=== PATIENT | male | born 1985 | race American Indian/Alaskan Native ===

== ENCOUNTER 2017-04-10 06:05 | Day surgery (SDC) | payer OTHER ==
[2017-04-10] MEDS ORDERED: fentaNYL 100 MCG/2 ML SDV IV ONE ×3 (06:06→06:43)
[2017-04-10] MEDS ORDERED: Midazolam 1 MG/ML 2 ML SDV IV ONE ×3 (06:06→06:45)
[2017-04-10] MEDS ORDERED: fentaNYL 100 MCG/2 ML SDV ONE (06:23)
[2017-04-10] MEDS ORDERED: Midazolam 1 MG/ML 2 ML SDV ONE (06:23)
[2017-04-10] MEDS ORDERED: Dextrose 5%-0.45% NaCl 1,000 ML IV SCH ×2 (07:00→07:15)
[2017-04-10] MEDS ORDERED: Sodium Chloride 0.9% 10 ML Syringe FLUSH PRN ×2 (07:00→07:06)
--- NOTE | 2017-04-10 07:29 | OR ---
DATE: 04/10/2017 PROCEDURES: Esophagogastroduodenoscopy, NBI, and multiple pinch biopsies and brush biopsy for cytology. INSTRUMENT USED: GIF-H180 Olympus video panendoscope. PREMEDICATIONS: No oral topical anesthesia used. Fentanyl 100 mcg intravenous, Versed 2 mg intravenous. Nasal O2 cannula. The procedure was done under pulse oximetry, BP recording, and medical unit secretary. INDICATION: The patient with persistent upper abdominal pain, unexplained and not responsive to medical measures. Esophagogastroduodenoscopy is performed for detection of any active erosive lesions, Lin esophagus and/or malignancy also under consideration, H. pylori status to be determined, endoscopic hemostasis therapy if needed. DESCRIPTION OF PROCEDURE: The scope was passed with ease. Adequate visualization of the esophagus was made from proximal to distal areas. No upper esophageal lesions were identified. No distal esophageal stricture. No uphill or downhill esophageal varices. No Olive-Harvey tear. No evidence of erosive esophagitis by [place] criteria. No esophageal polyp or tumor mass identified. Z-line was seen at around 40 cm distal to the oral verge, configuration consistent with grade 1 by ZAP classification. No proximal gastric varices noted. Gastric fundus examination by retroflexion showed no polypoid lesions. In the gastric body, 1 cm sized benign-appearing polyp was noted without bleeding from it. No visible vessel identified. Photographs were taken, including NBI views. Multiple pinch biopsies 8 in number were taken from different areas of the ulcer. [place] biopsy was also taken for cytology. Duodenal bulb showed no ulcer. Visualized second part of the duodenum was unremarkable. Multiple pinch biopsies were taken from the gastric antrum and proximal body and sent for PyloriTek test for H. pylori and histopathology. No bleeding was noted from any of the visualized areas at the completion of examination. Photographs were taken of the duodenal bulb, gastric antrum, fundus, and distal esophagus. IMPRESSION: Gastric ulcer. The patient tolerated the procedure well. [facility] /[id number]
[2017-04-10 09:42] VITALS: BP 121/84
== END 2017-04-10 09:05 | disposition home or self-care (01) ==
LOC: DL.ENDO 06:05
PROVIDERS: ATTEND Internal Medicine Gastroenterology
DX: K29.50 Unspecified chronic gastritis without bleeding (principal); K25.9 Gastric ulcer, unspecified as acute or chronic, without hemorrhage or perforation; Z90.49 Acquired absence of other specified parts of digestive tract
CPT/HCPCS: 43239; 87077; J2250; J3010; J7042

== ENCOUNTER 2023-02-19 10:57 | Emergency (ER) | payer OTHER ==
[2023-02-19 11:49] VITALS: BP 110/72; PULSE 61
[2023-02-19] MEDS ORDERED: Orphenadrine 60 MG/2 ML Inj IM ONE (13:00)
[2023-02-19] MEDS ORDERED: Ketorolac 30 MG/ML SDV IM ONE (13:00)
[2023-02-19] MEDS ORDERED: Take Home: Cyclobenzaprine 10 MG Tab, 4 Tab Pack PO ONE (13:05)
[2023-02-19] MEDS ORDERED: Ketorolac 10 MG Tab ONE (13:23)
== END 2023-02-19 13:37 | disposition home or self-care (01) ==
LOC: DL.ED 10:57
DX: M54.50 Low back pain, unspecified (principal); I48.91 Unspecified atrial fibrillation; E78.00 Pure hypercholesterolemia, unspecified; I10 Essential (primary) hypertension; Z79.899 Other long term (current) drug therapy; X50.1XXA Overexertion from prolonged static or awkward postures, initial encounter
CPT/HCPCS: 96372; 99283; A9270; J1885; J2360

== ENCOUNTER 2025-01-19 22:32 | Emergency (ER) | payer OTHER ==
[2025-01-19] MEDS: Ketorolac 30 MG/ML SDV IM ONE (23:28)
[2025-01-19] MEDS: Cyclobenzaprine 10 MG Tab PO ONE (23:28)
[2025-01-19] MEDS: Take Home: Cyclobenzaprine 10 MG Tab, 4 Tab Pack PO ONE (23:40)
[2025-01-19 23:59] VITALS: BP 118/65; PULSE 62
== END 2025-01-19 23:55 | disposition home or self-care (01) ==
LOC: DL.ED 22:32
DX: S39.012A Strain of muscle, fascia and tendon of lower back, initial encounter (principal); M53.88 Other specified dorsopathies, sacral and sacrococcygeal region; M54.16 Radiculopathy, lumbar region; I10 Essential (primary) hypertension; K21.9 Gastro-esophageal reflux disease without esophagitis; E11.9 Type 2 diabetes mellitus without complications; F17.290 Nicotine dependence, other tobacco product, uncomplicated; Z90.49 Acquired absence of other specified parts of digestive tract; Z79.84 Long term (current) use of oral hypoglycemic drugs; Z79.899 Other long term (current) drug therapy; X50.0XXA Overexertion from strenuous movement or load, initial encounter
CPT/HCPCS: 96372; 99283; 99284; A9270-GY; J1885